=== PATIENT | male | born 1980 | race Caucasian/White ===

== ENCOUNTER 2018-03-10 13:14 | Emergency (ER) | payer OTHER ==
--- NOTE | 2018-03-10 13:45 | ED Physician Chart ---
ED Chief Complaint/HPI - Patient Information Date Seen:: 03/10/18 Time Seen:: 13:44 Chief Complaint:: SORE THROAT AWOKE WITH THIS A.M. History of Present Illness:: THIS 37-YEAR-OLD MALE AWOKE THIS MORNING WITH A SEVERE HIS SORE THROAT THAT HE SCORES A 10 OVER 10 SEVERITY. THE SORE THROAT IS ACCOMPANIED BY A FEVER OF 102 , NO COUGH OR RASH AND A SORE LYMPH NODE IN THE LEFT NECK AT THE ANGLE OF THE MANDIBLE. THE PATIENT HAS NO CHANGE IN VOICE AND HE IS ABLE TO SWALLOW LIQUIDS AND SOLIDS. NO ASSOCIATED NAUSEA, VOMITING OR DIARRHEA. Allergies:: Allergies Allergy/AdvReac Type Severity Reaction Status Date / Time No Known Allergies Allergy Verified 03/10/18 13:27 Vitals:: Vital Signs - 8 hr 03/10/18 13:20 Temp 102.0 F HR 116 RR 19 BP 114/76 O2 Sat % 98 ED Review of Systems - Review of Systems General/Constitutional: No fever, No chills, No weakness, No diaphoresis, No edema, No loss of appetite Skin: No skin lesions, No rash, No bruising Head: No headache, No light-headedness Eyes: No loss of vision, No pain, No diplopia ENT: No earache, Sore throat, No tinnitus Neck: No swelling, No thyromegaly, Other (SWOLLEN, tender adenopathy in the left neck at the angle of the mandible.) Cardio Vascular: No chest pain, No palpitations, No PND, No edema Pulmonary: No cough, No sputum, No wheezing GI: No nausea, No vomiting, No diarrhea, No pain G/U: No dysuria, No frequency, No hematuria Product/Device Technologist: No abnormal vaginal bleed Musculoskeletal: No bone or joint pain, Back pain, Muscle pain Endocrine: No polyuria, No polydipsia Psychiatric: No prior psych history, No depression, No anxiety, No homicidal ideation, No auditory hallucination, No visual hallucination Hematopoietic: No bruising, Lymphadenopathy Allergic/Immuno: No urticaria, No angioedema Neurological: No syncope, No focal symptoms, No weakness, No headache, No seizure, No dizziness, No confusion, No vertigo ED Past Medical History - Past Medical History Past Medical History: No significant medical hx Family History: DVT/PE Social History: Non Smoker, No Alcohol, No Drug Use (NO HYPERTENSION NO DIABETES NO COPD OR RESPIRATORY PROBLEMS), , 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 Surgical History: None Psychiatricy History: None Medication: None Family Medical History - Family Member Mother History Unknown: Yes Ethnicity: Living Status: Still Living ED Physical Exam - Physical Examination General/Constitutional: Awake, Well-developed, well-nourished, Alert, Non-toxic appearing, Ambulatory Other Gen/Cons comments:: MODERATE DISTRESS FROM LOOKING AT THE EXTENT OF INFLAMMATION IN THE POSTERIOR PHARYNX WHICH IS +4. THE PATIENT HAS NO EXUDATES IN THE POSTERIOR PHARYNX ARE OVER THE TONSILS. THE TONSILS ARE VERY INFLAMED AND RED WITH NO ENLARGEMENT. THE NECK IS SUPPLE AND THE PATIENT HAS A SINGLE ISOLATED LYMPH NODE WHICH IS TENDER TO PALPATION AT THE ANGLE OF THE right mandible. Head: Atraumatic Eyes: Lids, conjuctiva normal, PERRL, EOMI Skin: Nl inspection, No rash, No skin lesions, No ecchymosis, Well hydrated, No lymphadenopathy ENMT: Nasal exam nl, Lips, teeth, gums nl Other ENMT comments:: ON patient has marked inflammation and redness in the posterior pharynx and over both the right left tonsil. there are no peritonsillar masses and there are no exudates on the tonsils. Neck: Full ROM w/o pain, No JVD, No nuchal rigidity, No bruit, No mass, No stridor Respiratory: Nl effort/Exclusion, Clear to Auscultation, No Wheeze/Rhonchi/Rales GI: No tenderness/rebounding/guarding, No organomegaly, No hernia, Nondistended , No mass/bruits, No McBurney tenderness Other GI comments:: RECTAL EXAM DEFERRED AT MY DISCRETION. : No CVA tenderness Extremities: No tenderness or effusion, normal strength in all extremities, No edema Neuro/Psych: Alert/oriented, DTR's symmetric, Normal sensory exam, Normal motor strength, Judgement/insight normal, Mood normal, Normal gait, No focal deficits Misc: Normal back, No paraspinal tenderness ED Labs/Radiology/EKG Results - Lab Results Results: No radiographic or laboratory studies indicated. ED Assessment - Assessment General Assessment: PATIENT IS A WELL-DEVELOPED WELL-NOURISHED 37-YEAR-OLD MALE WHO APPEARS TO BE IN NO ACUTE DISTRESS. ED Septic Shock - . Is Septic Shock (SBP<90, OR Lactate>4 mmol\L) present?: No - <6hrs of presentation: Vital Signs: Vital Signs - 8 hr 03/10/18 13:20 Temp 102.0 F HR 116 RR 19 BP 114/76 O2 Sat % 98 Assessment of Heart: No thrill, No Gallops, No Rub, No Murmur EKG Interpretation: No ST elevation, No ST depression, No Ectopy, Tachy Capillary refill evaluation: Capillary refill < 2 secs, Documented in PE Skin Exam: Warm, Dry, Good Turgur, No Pallor, No Edema, No Erythema ED Discharge Plan - Patient Disposition Admit/Discharge/Transfer: PT DISCHARGED HOME Condition at Disposition: Stable Instructions: Viral and Bacterial Pharyngitis, Strep Throat, [id number]
== END 2018-03-10 14:12 | disposition home or self-care (01) ==
LOC: ER 13:14
DX: J02.9 Acute pharyngitis, unspecified (principal)
CPT/HCPCS: 99282; J8540